=== PATIENT | female | born 1965 | race Caucasian/White ===

== ENCOUNTER 2017-12-23 22:41 | Emergency (ER) | payer OTHER ==
[~2017-12-23] VITALS: Ht 167.6 cm; Wt 163.0 kg
[2017-12-23 23:36] LABS: BASOPHIL (%) 0.4 % (0-1); EOSINOPHIL (%) 1.4 % (0-5); EOSINOPHIL COUNT 0.2 K/uL (0-0.3); HEMATOCRIT 40.6 % (36.0-46.0); HEMOGLOBIN 13.5 G/DL (11.9-15.5); IMMATURE GRANULOCYTE (%) 0.3 % (0.0-0.7); LYMPHOCYTE (%) 31.9 % (15-42); LYMPHOCYTE COUNT 3.5 K/uL (1.0-2.8); MCH 28.4 PG (29.0-34.0); MCHC 33.3 G/DL (30.0-36.0); MCV 85.5 FL (83-99); MONOCYTE (%) 7.9 % (3-12); MONOCYTE COUNT 0.9 K/uL (0-0.8); NEUTROPHIL (%) 58.1 % (45-76); NEUTROPHIL COUNT 6.4 K/uL (1.8-6.4); PLATELET COUNT 284 K/uL (156-360); RBC DIS.WIDTH-CV 13.5 % (11.8-14.6); RBC DIS.WIDTH-SD 42.5 % (39-53); RED BLOOD COUNT 4.75 M/uL (3.80-5.20)
[2017-12-23 23:44] LABS: CHLORIDE 103 mEq/L (99-109); POTASSIUM 3.8 mEq/L (3.7-5.4); SODIUM 140 mEq/L (136-147)
[2017-12-23 23:46] LABS: GLUCOSE 218 mg/dL (70-99)
[2017-12-23 23:50] LABS: CREATININE 0.8 mg/dL (0.6-1.3)
[2017-12-23 23:51] LABS: UREA NITROGEN (BUN) 16 mg/dL (9-23)
[2017-12-23 23:53] LABS: GFR ESTIMATE (CALCULATED) > 59 mL/min/
[2017-12-24] MEDS ORDERED: PROVENTIL,2.5 MG/3 M IH (01:59)
[2017-12-24] MEDS ORDERED: PREDNISONE20 MG PO (01:59)
[2017-12-24] MEDS ORDERED: ZITHROMAX250 MG PO (01:59)
[2017-12-24] MEDS ORDERED: VENTOLIN HFA18 GM IH (01:59)
[2017-12-24 03:15] VITALS: BP 177/90
== END 2017-12-24 03:16 | disposition home or self-care (01) ==
LOC: EME 22:41
PROVIDERS: Physician Assistant
DX: J45.901 Unspecified asthma with (acute) exacerbation (principal); E66.01 Morbid (severe) obesity due to excess calories; Z68.43 Body mass index [BMI] 50.0-59.9, adult; R03.0 Elevated blood-pressure reading, without diagnosis of hypertension; R73.9 Hyperglycemia, unspecified; Z90.49 Acquired absence of other specified parts of digestive tract
CPT/HCPCS: 71046; 71275; 80048; 83605; 85025; 85379; 87040; 87502; 87631; 93005; 94640; 99281; 99285; J1100; J1200; J7030